=== PATIENT | male | born 1965 | race Caucasian/White ===

== ENCOUNTER 2024-05-12 01:24 | Emergency (ER) | payer BC ==
[~2024-05-12] VITALS: Ht 180.3 cm; Wt 95.0 kg
[2024-05-12 01:43] VITALS: O2SAT 100
[2024-05-12] MEDS: ASPIRIN 81MG TABLET PO ONE (01:55)
[2024-05-12 02:02] LABS: BASOPHILS % 0.8 % (0.0-2.0); EOSINOPHILS % 0.9 % (0.0-5.0); HEMATOCRIT. 38.8 % (42.0-52.0); HEMOGLOBIN. 13.4 g/dL (14.0-18.0); LYMPHOCYTES % 17.1 % (20.0-50.0); MEAN CORPUSCULAR HEMOGLOBIN 30.5 pg (28.0-32.0); MEAN CORPUSCULAR HGB CONC 34.4 g/dL (31.0-37.0); MEAN CORPUSCULAR VOLUME 88.5 fL (80.0-94.0); MEAN PLATELET VOLUME 8.8 fl (7.4-10.4); MONOCYTES % 5.9 % (2.0-8.0); NEUTROPHILS % 75.3 % (40.0-76.0); PLATELET 254 x1000/uL (130-400); RED BLOOD CELL COUNT 4.39 mill/uL (4.7-6.1); RED CELL DISTRIBUTION WIDTH 12.9 % (11.6-14.6); WHITE BLOOD COUNT 10.7 x1000/uL (4.5-11.0)
[2024-05-12 02:08] LABS: CARBON DIOXIDE 25 mEq/L (21-32); CHLORIDE 104 mEq/L (98-107); POTASSIUM 4.5 mEq/L (3.5-5.1); SODIUM 138 mEq/L (136-145)
[2024-05-12 02:09] LABS: CALCIUM 9.6 mg/dL (8.7-10.4)
[2024-05-12 02:13] LABS: CREATININE 1.3 mg/dL (0.6-1.3)
[2024-05-12 02:14] LABS: GLUCOSE 130 mg/dL (70-105); TROPONIN I HIGH SENSITIVITY 27 ng/L (3.0-53); UREA NITROGEN BLOOD 24 mg/dL (9-23)
[2024-05-12 02:16] LABS: LACTIC ACID 2.1 mmol/L (0.4-2.0)
[2024-05-12 02:18] LABS: D-DIMER 0.65 mg/L FEU (<0.50); INR 0.9; PROTHROMBIN TIME 10.6 sec (9.6-11.0)
[2024-05-12] MEDS: ONDANSETRON HCL 4MG/2ML INJ IV STA (03:15)
[2024-05-12] MEDS: MORPHINE SULFATE 4 MG/ML INJ (FOR IV/IM USE) IV STA (03:15)
[2024-05-12] MEDS: SODIUM CHLORIDE 0.9% 1,000 ML IV ONE (03:15)
[2024-05-12 04:24] LABS: TROPONIN I HIGH SENSITIVITY 24 ng/L (3.0-53)
[2024-05-12 05:31] LABS: ALANINE AMINOTRANSFERASE 21 IU/L (10-49); ALBUMIN 3.9 g/dL (3.2-4.8); ASPARTATE AMINOTRANSFERASE 19 IU/L (<34); BILIRUBIN DIRECT 0.2 mg/dL (<=3.0); BILIRUBIN TOTAL 0.5 mg/dL (0.1-1.0); PROTEIN TOTAL 6.4 g/dL (6.0-8.3)
[2024-05-12] MEDS: IOHEXOL-350 100 ML BOTTLE ONE (06:22)
[2024-05-12 12:14] VITALS: BP 116/71; PULSE 76; RESP 18; TEMP 98.1
== END 2024-05-12 12:15 | disposition home or self-care (01) ==
LOC: ER 01:36 → 5WST 02:48 → UNDOADMIN 02:48 → UNDODISIN 12:33
DX: I24.9 Acute ischemic heart disease, unspecified (principal); F17.200 Nicotine dependence, unspecified, uncomplicated; Z88.1 Allergy status to other antibiotic agents
CPT/HCPCS: 80076; 80048; 83880; 83605; 83690; 85025; 85379; 85610; 84484; 36415; 71045; 71275; 76705; 93005; 96361; 96374; 96375; 99291; Q9967; Z7610; J2405; J2270; J7030